=== PATIENT | male | born 2000 | race Two or more races ===

== ENCOUNTER 2019-11-13 12:42 | Emergency (ER) | payer OTHER ==
[~2019-11-13] VITALS: Ht 170.2 cm; Wt 77.0 kg
[2019-11-13 13:00] VITALS: BP 129/72
== END 2019-11-13 17:04 | disposition home or self-care (01) ==
LOC: ER 12:44 → EDSEX 12:46 → ER 12:46
DX: H53.8 Other visual disturbances (principal)
CPT/HCPCS: 99281